=== PATIENT | male | born 1960 | race Caucasian/White ===

== ENCOUNTER 2022-04-30 04:30 | Emergency (ER) | payer SELFPAY ==
[~2022-04-30] VITALS: Ht 170.2 cm; Wt 73.0 kg
[2022-04-30 04:39] VITALS: BP 134/81
[2022-04-30] MEDS ORDERED: BACITRACIN ZINC OINT UDPKT TOP ONE (05:15)
== END 2022-04-30 05:38 | disposition home or self-care (01) ==
LOC: ER 04:30
DX: S10.81XA Abrasion of other specified part of neck, initial encounter (principal); X58.XXXA Exposure to other specified factors, initial encounter; Y93.89 Activity, other specified; Y92.89 Other specified places as the place of occurrence of the external cause; Y99.8 Other external cause status
CPT/HCPCS: 99281

== ENCOUNTER 2022-06-05 02:59 | Emergency (ER) | payer OTHER | END 2022-06-05 07:41 | disposition left against medical advice (07) | LOC: ER 02:59 | DX: Z53.21 Procedure and treatment not carried out due to patient leaving prior to being seen by health care provider (principal) ==